=== PATIENT | male | born 1965 | race Caucasian/White ===

== ENCOUNTER 2021-02-19 07:56 | Inpatient (IN) | payer MEDICAID, OTHER ==
[~2021-02-19] VITALS: Ht 147.3 cm; Wt 62.6 kg
[2021-02-19] MEDS ORDERED: PANTOPRAZOLE SODIUM 40 MG/VIAL IV STA (08:14)
[2021-02-19] MEDS ORDERED: ONDANSETRON HCL 4MG/2ML INJ IV ONE (08:15)
[2021-02-19] MEDS ORDERED: SODIUM CHLORIDE 0.9% 1,000 ML IV ONE (08:15)
[2021-02-19 08:47] LABS: BASOPHILS % 0.7 % (0.0-2.0); EOSINOPHILS % 0.3 % (0.0-5.0); HEMATOCRIT. 26.5 % (42.0-52.0); HEMOGLOBIN. 8.6 g/dL (14.0-18.0); LYMPHOCYTES % 12.1 % (20.0-50.0); MEAN CORPUSCULAR HEMOGLOBIN 27.7 pg (28.0-32.0); MEAN CORPUSCULAR VOLUME 85.4 fL (80.0-94.0); MEAN PLATELET VOLUME 7.5 fl (7.4-10.4); NEUTROPHILS % 82.9 % (40.0-76.0); PLATELET 200 x1000/uL (130-400); RED CELL DISTRIBUTION WIDTH 17.6 % (11.6-14.6)
[2021-02-19 08:55] LABS: CHLORIDE 107 mEq/L (98-107)
[2021-02-19 09:41] LABS: INR 1.1; PROTHROMBIN TIME 11.5 sec (9.6-11.0)
[2021-02-19] MEDS ORDERED: MAGNESIUM/ALUMINUM HYDROXIDE/SIMETHICONE 30ML UDC PO STA (11:43)
[2021-02-19] MEDS ORDERED: DICYCLOMINE 10 MG/5 ML ORAL SYR PO STA (11:43)
[2021-02-19] MEDS ORDERED: VISCOUS LIDOCAINE 2% 15 ML UDC PO STA (11:43)
[2021-02-19] MEDS ORDERED: ONDANSETRON HCL 4MG/2ML INJ IV PRN (12:45)
[2021-02-19] MEDS ORDERED: ACETAMINOPHEN 650MG SUPP PR PRN (12:45)
[2021-02-19] MEDS: DEXT 5%/0.45% NACL 1000ML 1,000 ML IV SCH (13:07)
[2021-02-19] MEDS ORDERED: PANTOPRAZOLE 80 MG in SODIUM CHLORIDE 0.9% 100 ML IV SCH (13:30)
[2021-02-19] MEDS: LORAZEPAM 2MG/ML CPJ IV PRN (18:20)
[2021-02-19] MEDS: HYDROMORPHONE HCL/PF 2MG/ML CPJ IV PRN (18:20)
[2021-02-19] MEDS: PANTOPRAZOLE SODIUM 40 MG/VIAL IV SCH (21:22)
[2021-02-20] VITALS (15 sets, daily range): BP systolic 120–152; BP diastolic 62–88
[2021-02-20] MEDS: LORAZEPAM 2MG/ML CPJ IV PRN (01:19)
[2021-02-20] MEDS: DEXT 5%/0.45% NACL 1000ML 1,000 ML IV SCH ×2 (02:08→15:34)
[2021-02-20 06:20] LABS: BASOPHILS % 0.6 % (0.0-2.0); EOSINOPHILS % 0.4 % (0.0-5.0); LYMPHOCYTES % 9.3 % (20.0-50.0); MEAN CORPUSCULAR HEMOGLOBIN 28.2 pg (28.0-32.0); MEAN CORPUSCULAR VOLUME 85.7 fL (80.0-94.0); MEAN PLATELET VOLUME 7.8 fl (7.4-10.4); MONOCYTES % 8.1 % (2.0-8.0); NEUTROPHILS % 81.6 % (40.0-76.0); PLATELET 132 x1000/uL (130-400); RED BLOOD CELL COUNT 2.28 mill/uL (4.7-6.1); RED CELL DISTRIBUTION WIDTH 18.1 % (11.6-14.6)
[2021-02-20 06:23] LABS: INR 1.1; PROTHROMBIN TIME 11.6 sec (9.6-11.0)
[2021-02-20 06:31] LABS: CHLORIDE 104 mEq/L (98-107)
[2021-02-20 06:36] LABS: PHOSPHORUS 2.2 mg/dL (2.5-4.9)
[2021-02-20 06:45] LABS: HEMATOCRIT. 19.5 % (42.0-52.0); HEMOGLOBIN. 6.4 g/dL (14.0-18.0)
[2021-02-20 06:55] LABS: HEPATITIS B SURFACE ANTIGEN NEGATIVE
[2021-02-20 07:25] LABS: HEPATITIS A AB IGM NEGATIVE (NEGATIVE)
[2021-02-20] MEDS ORDERED: PNEUMOCOCCAL 23-VAL P-SAC VAC 0.5 ML IM ONE (08:00)
[2021-02-20] MEDS: PANTOPRAZOLE SODIUM 40 MG/VIAL IV SCH ×2 (09:09→20:46)
[2021-02-20] MEDS ORDERED: MAGNESIUM 2 G PREMIX 50 ML IV NR (11:30)
[2021-02-20] MEDS ORDERED: POTASSIUM PHOS,M-BASIC-D-BASIC 30 MMOL in DEXT 5% WATER 500 ML IV NR (12:00)
[2021-02-20 16:43] LABS: BASOPHILS % 0.6 % (0.0-2.0); EOSINOPHILS % 0.7 % (0.0-5.0); HEMATOCRIT. 23.7 % (42.0-52.0); HEMOGLOBIN. 8.3 g/dL (14.0-18.0); LYMPHOCYTES % 8.6 % (20.0-50.0); MEAN CORPUSCULAR HEMOGLOBIN 30.1 pg (28.0-32.0); MEAN CORPUSCULAR VOLUME 86.1 fL (80.0-94.0); MEAN PLATELET VOLUME 8.1 fl (7.4-10.4); MONOCYTES % 5.4 % (2.0-8.0); NEUTROPHILS % 84.7 % (40.0-76.0); PLATELET 117 x1000/uL (130-400); RED BLOOD CELL COUNT 2.75 mill/uL (4.7-6.1); RED CELL DISTRIBUTION WIDTH 16.4 % (11.6-14.6)
[2021-02-21] VITALS: BP 127/73
[2021-02-21 00:50] LABS: BASOPHILS % 0.5 % (0.0-2.0); EOSINOPHILS % 0.9 % (0.0-5.0); HEMATOCRIT. 27.1 % (42.0-52.0); HEMOGLOBIN. 9.2 g/dL (14.0-18.0); LYMPHOCYTES % 11.4 % (20.0-50.0); MEAN CORPUSCULAR HEMOGLOBIN 28.9 pg (28.0-32.0); MEAN CORPUSCULAR VOLUME 85.3 fL (80.0-94.0); MEAN PLATELET VOLUME 7.8 fl (7.4-10.4); MONOCYTES % 4.8 % (2.0-8.0); NEUTROPHILS % 82.4 % (40.0-76.0); PLATELET 102 x1000/uL (130-400); RED BLOOD CELL COUNT 3.17 mill/uL (4.7-6.1); RED CELL DISTRIBUTION WIDTH 16.2 % (11.6-14.6)
[2021-02-21 01:45] LABS: PROTHROMBIN TIME 11.2 sec (9.6-11.0)
[2021-02-21 04:00] VITALS: BP 133/72
[2021-02-21] MEDS: DEXT 5%/0.45% NACL 1000ML 1,000 ML IV SCH ×3 (04:40→22:46)
[2021-02-21 05:45] LABS: CHLORIDE 100 mEq/L (98-107)
[2021-02-21 05:51] LABS: BASOPHILS % 0.3 % (0.0-2.0); EOSINOPHILS % 1.1 % (0.0-5.0); HEMATOCRIT. 29.7 % (42.0-52.0); HEMOGLOBIN. 9.8 g/dL (14.0-18.0); LYMPHOCYTES % 11.3 % (20.0-50.0); MEAN CORPUSCULAR HEMOGLOBIN 28.9 pg (28.0-32.0); MEAN CORPUSCULAR VOLUME 87.7 fL (80.0-94.0); MEAN PLATELET VOLUME 8.3 fl (7.4-10.4); MONOCYTES % 3.9 % (2.0-8.0); NEUTROPHILS % 83.4 % (40.0-76.0); PLATELET 110 x1000/uL (130-400); RED BLOOD CELL COUNT 3.39 mill/uL (4.7-6.1); RED CELL DISTRIBUTION WIDTH 16.2 % (11.6-14.6)
[2021-02-21 08:06] VITALS: BP 141/77
[2021-02-21] MEDS: PANTOPRAZOLE SODIUM 40 MG/VIAL IV SCH ×2 (08:53→20:39)
[2021-02-21] MEDS: HYDROMORPHONE HCL/PF 2MG/ML CPJ IV PRN ×3 (09:52→22:47)
[2021-02-21] MEDS ORDERED: PROPOFOL 200MG/20ML VIAL IV ONE ×2 (11:45→11:49)
[2021-02-21] MEDS ORDERED: MORPHINE SULFATE 2 MG/ML CPJ (NOT FOR IM USE) IV PRN (12:00)
[2021-02-21] MEDS ORDERED: ONDANSETRON HCL 4MG/2ML INJ IV PRN (12:00)
[2021-02-21] MEDS ORDERED: LIDOCAINE HCL/PF 1% 10 MG/ML 5ML VIAL ONE (12:10)
[2021-02-21 12:11] VITALS: BP 136/84
[2021-02-21 16:00] VITALS: BP 127/70
[2021-02-21 20:00] VITALS: BP 142/85
[2021-02-22] VITALS: BP 149/88
[2021-02-22 04:00] VITALS: BP 158/83
[2021-02-22 08:00] VITALS: BP 138/76
[2021-02-22] MEDS: PANTOPRAZOLE SODIUM 40 MG/VIAL IV SCH (09:03)
[2021-02-22] MEDS: HYDROMORPHONE HCL/PF 2MG/ML CPJ IV PRN (09:17)
[2021-02-22 12:55] VITALS: BP 124/65
[2021-02-22 15:41] VITALS: BP 124/65
[2021-02-22] MEDS ORDERED: SUCRALFATE 1 G/10 ML UDC PO SCH (17:20)
== END 2021-02-22 16:32 | disposition home or self-care (01) | DRG 243 ==
LOC: ER 07:56 → MICUSO 09:29 → EDBEDREQTM 09:30 → EDBEDREQ 09:30 → 6WST 22:33
PROVIDERS: ADMIT Hospitalist; ATTEND Hospitalist
PROC: 30233N1 Transfusion of Nonautologous Red Blood Cells into Peripheral Vein, Percutaneous Approach (ICD-10-PCS; 2021-02-20)
PROC: 0DB68ZX Excision of Stomach, Via Natural or Artificial Opening Endoscopic, Diagnostic (ICD-10-PCS; principal; 2021-02-21)
DX: K20.91 Esophagitis, unspecified with bleeding (principal); K22.6 Gastro-esophageal laceration-hemorrhage syndrome; D62 Acute posthemorrhagic anemia; K29.71 Gastritis, unspecified, with bleeding; K44.9 Diaphragmatic hernia without obstruction or gangrene; F10.10 Alcohol abuse, uncomplicated; Z20.822 Contact with and (suspected) exposure to COVID-19; Z60.2 Problems related to living alone; Z79.899 Other long term (current) drug therapy
CPT/HCPCS: 36415; 71045; 76700; 80053; 83735; 84100; 84450; 85025; 85384; 86705; 86709; 86803; 86850; 86900; 86920; 87340; 87426; 88305; 88312; 88313; 90732; 93005; 99285; C9113; J1170; J2060; J2405; J2704; J3475; J3490; J7030; J7040; J7050; J7060; P9016

== ENCOUNTER 2021-03-06 18:03 | Inpatient (IN) | payer MEDICAID ==
[~2021-03-06] VITALS: Ht 162.6 cm; Wt 26.8 kg
[2021-03-06] MEDS ORDERED: PANTOPRAZOLE SODIUM 40 MG/VIAL IV STA (18:18)
[2021-03-06] MEDS ORDERED: ONDANSETRON HCL 4MG/2ML INJ IV STA (18:18)
[2021-03-06] MEDS ORDERED: DIAZEPAM 5 MG/ML 2ML CPJ IV ONE ×2 (18:30→22:30)
[2021-03-06] MEDS ORDERED: SODIUM CHLORIDE 0.9% 1,000 ML IV ONE (18:30)
[2021-03-06 19:35] LABS: INR 1.1; PROTHROMBIN TIME 11.4 sec (9.6-11.0)
[2021-03-06 19:36] LABS: CHLORIDE 90 mEq/L (98-107)
[2021-03-06 19:37] LABS: HEMATOCRIT. 21.7 % (42.0-52.0); HEMOGLOBIN. 7.5 g/dL (14.0-18.0); MEAN CORPUSCULAR HEMOGLOBIN 28.9 pg (28.0-32.0); MEAN CORPUSCULAR VOLUME 83.4 fL (80.0-94.0); MEAN PLATELET VOLUME 7.3 fl (7.4-10.4); PLATELET 397 x1000/uL (130-400); RED CELL DISTRIBUTION WIDTH 18.8 % (11.6-14.6)
[2021-03-06 20:42] LABS: PLATELET ESTIMATE NORMAL
[2021-03-06] MEDS ORDERED: ONDANSETRON HCL 4MG/2ML INJ IV ONE (23:15)
[2021-03-06] MEDS ORDERED: ONDANSETRON HCL 4MG/2ML INJ IV PRN (23:45)
[2021-03-07] MEDS ORDERED: MORPHINE SULFATE 4 MG/ML CPJ (NOT FOR IM USE) IV ONE (01:15)
[2021-03-07] MEDS ORDERED: DEXT 5%/0.9% NACL KCL 30MEQ/L 1,000 ML IV SCH (02:30)
[2021-03-07 02:47] LABS: CLARITY URINE CLEAR (CLEAR); COLOR URINE YELLOW (YELLOW); KETONES URINE 2+ (NEGATIVE); LEUKOCYTE ESTERASE URINE NEGATIVE (NEGATIVE); NITRITE URINE NEGATIVE (NEGATIVE); OCCULT BLOOD URINE NEGATIVE (NEGATIVE); PH URINE 6.5 (4.5-8.0); PROTEIN URINE 2+ (NEGATIVE); SPECIFIC GRAVITY URINE 1.021 (1.005-1.030)
[2021-03-07] MEDS: PANTOPRAZOLE SODIUM 40 MG/VIAL IV SCH ×2 (03:15→21:35)
[2021-03-07] MEDS: POTASSIUM CHLORIDE INJ 30 MEQ in DEXT 5%/0.9% NACL 1,000 ML IV SCH ×3 (03:15→21:47)
[2021-03-07] MEDS: THIAMINE HCL 100 MG/1 ML 2ML VIAL IM SCH (03:16)
[2021-03-07 05:34] LABS: EOSINOPHILS % 0.1 % (0.0-5.0); HEMATOCRIT. 24.4 % (42.0-52.0); HEMOGLOBIN. 8.3 g/dL (14.0-18.0); MEAN CORPUSCULAR HEMOGLOBIN 28.3 pg (28.0-32.0); MEAN CORPUSCULAR VOLUME 82.7 fL (80.0-94.0); MONOCYTES % 9.6 % (2.0-8.0); NEUTROPHILS % 77.3 % (40.0-76.0); PLATELET 240 x1000/uL (130-400); RED BLOOD CELL COUNT 2.95 mill/uL (4.7-6.1); RED CELL DISTRIBUTION WIDTH 17.3 % (11.6-14.6)
[2021-03-07 05:41] LABS: CHLORIDE 103 mEq/L (98-107)
[2021-03-07 05:49] LABS: ETHANOL BLOOD < 10 mg/dL
[2021-03-07] MEDS: METOCLOPRAMIDE HCL 10MG/2ML VIAL IV SCH ×3 (06:26→18:15)
[2021-03-07] MEDS ORDERED: LORAZEPAM 2MG/ML CPJ IV PRN ×2 (10:15→12:15)
[2021-03-07 12:00] VITALS: BP 139/79
[2021-03-07] MEDS: MULTIVITAMINS,THER W-MINERALS TABLET PO SCH (13:10)
[2021-03-07 18:01] LABS: PHOSPHORUS 1.4 mg/dL (2.5-4.9)
[2021-03-07] MEDS: SUCRALFATE 1 G/10 ML UDC PO SCH ×2 (18:19→21:35)
[2021-03-07 18:23] LABS: FOLIC ACID (FOLATE) SERUM > 20.00 ng/mL (>5.38)
[2021-03-07 20:00] VITALS: BP 123/74
[2021-03-08] VITALS: BP 123/76
[2021-03-08] MEDS: METOCLOPRAMIDE HCL 10MG/2ML VIAL IV SCH ×4 (01:50→17:34)
[2021-03-08 04:00] VITALS: BP 125/71
[2021-03-08] MEDS: SUCRALFATE 1 G/10 ML UDC PO SCH ×4 (06:22→21:50)
[2021-03-08 07:28] LABS: BASOPHILS % 1.2 % (0.0-2.0); EOSINOPHILS % 1.2 % (0.0-5.0); HEMATOCRIT. 24.9 % (42.0-52.0); HEMOGLOBIN. 8.3 g/dL (14.0-18.0); LYMPHOCYTES % 20.2 % (20.0-50.0); MEAN CORPUSCULAR HEMOGLOBIN 28.6 pg (28.0-32.0); MEAN CORPUSCULAR VOLUME 86.1 fL (80.0-94.0); MEAN PLATELET VOLUME 7.6 fl (7.4-10.4); MONOCYTES % 7.3 % (2.0-8.0); NEUTROPHILS % 70.1 % (40.0-76.0); PLATELET 209 x1000/uL (130-400); RED CELL DISTRIBUTION WIDTH 17.2 % (11.6-14.6)
[2021-03-08 07:37] LABS: CHLORIDE 108 mEq/L (98-107)
[2021-03-08 08:00] VITALS: BP 130/78
[2021-03-08] MEDS: THIAMINE HCL 100 MG/1 ML 2ML VIAL IM SCH (09:00)
[2021-03-08] MEDS: PANTOPRAZOLE SODIUM 40 MG/VIAL IV SCH ×2 (10:00→21:50)
[2021-03-08] MEDS: MULTIVITAMINS,THER W-MINERALS TABLET PO SCH (10:00)
[2021-03-08] MEDS: POTASSIUM CHLORIDE INJ 30 MEQ in DEXT 5%/0.9% NACL 1,000 ML IV SCH ×2 (10:01→21:50)
[2021-03-08 12:00] VITALS: BP 124/78
[2021-03-08 16:00] VITALS: BP 126/92
[2021-03-08] MEDS: MAGNESIUM OXIDE 400MG TABLET PO SCH (17:34)
[2021-03-08] MEDS ORDERED: NALOXONE HCL 0.4MG/ML VIAL IV PRN (22:00)
[2021-03-08] MEDS ORDERED: HYDROCODONE/ACETAMINOPHEN 5/325MG TABLET PO PRN (22:00)
[2021-03-09] VITALS: BP 105/67
[2021-03-09] MEDS: METOCLOPRAMIDE HCL 10MG/2ML VIAL IV SCH ×3 (00:36→12:53)
[2021-03-09 04:00] VITALS: BP 120/73
[2021-03-09] MEDS: POTASSIUM CHLORIDE INJ 30 MEQ in DEXT 5%/0.9% NACL 1,000 ML IV SCH (06:32)
[2021-03-09] MEDS: SUCRALFATE 1 G/10 ML UDC PO SCH ×2 (06:32→12:53)
[2021-03-09 08:00] VITALS: BP 133/75
[2021-03-09] MEDS: MULTIVITAMINS,THER W-MINERALS TABLET PO SCH (10:05)
[2021-03-09] MEDS: PANTOPRAZOLE SODIUM 40 MG/VIAL IV SCH (10:05)
[2021-03-09] MEDS: MAGNESIUM OXIDE 400MG TABLET PO SCH (10:05)
[2021-03-09] MEDS: THIAMINE HCL 100 MG/1 ML 2ML VIAL IM SCH (10:05)
[2021-03-09 12:00] VITALS: BP 127/75
[2021-03-09 13:39] VITALS: BP 127/75
== END 2021-03-09 14:10 | disposition home or self-care (01) | DRG 243 ==
LOC: ER 18:03 → MICUSO 23:41 → 8WST 03-07 11:29
PROVIDERS: ADMIT Internal Medicine; ATTEND Internal Medicine
PROC: 30233N1 Transfusion of Nonautologous Red Blood Cells into Peripheral Vein, Percutaneous Approach (ICD-10-PCS; principal; 2021-03-06)
DX: K20.91 Esophagitis, unspecified with bleeding (principal); E87.1 Hypo-osmolality and hyponatremia; E87.8 Other disorders of electrolyte and fluid balance, not elsewhere classified; K74.60 Unspecified cirrhosis of liver; E87.6 Hypokalemia; D64.9 Anemia, unspecified; F10.10 Alcohol abuse, uncomplicated; Y90.9 Presence of alcohol in blood, level not specified; Z71.41 Alcohol abuse counseling and surveillance of alcoholic; Z87.19 Personal history of other diseases of the digestive system; Z91.14 Patient's other noncompliance with medication regimen
CPT/HCPCS: 36415; 71045; 80048; 80053; 80076; 80307; 80320; 80329; 81003; 82746; 82962; 83605; 83735; 84100; 84484; 85025; 86850; 86900; 86920; 93005; 99291; C9113; J2060; J2270; J2405; J2765; J3411; J3480; J7030; J7042; P9016; G0480

== ENCOUNTER 2021-03-15 23:34 | Emergency (ER) | payer MEDICAID ==
[~2021-03-15] VITALS: Ht 157.5 cm; Wt 54.0 kg
[2021-03-16] MEDS ORDERED: MAGNESIUM/ALUMINUM HYDROXIDE/SIMETHICONE 30ML UDC PO STA (00:07)
[2021-03-16] MEDS ORDERED: DICYCLOMINE 10 MG/5 ML ORAL SYR PO STA (00:07)
[2021-03-16] MEDS ORDERED: VISCOUS LIDOCAINE 2% 15 ML UDC PO STA (00:07)
[2021-03-16 00:33] LABS: HEMATOCRIT. 26.7 % (42.0-52.0); HEMOGLOBIN. 8.8 g/dL (14.0-18.0); MEAN CORPUSCULAR HEMOGLOBIN 27.9 pg (28.0-32.0); MEAN CORPUSCULAR VOLUME 84.5 fL (80.0-94.0); MEAN PLATELET VOLUME 6.4 fl (7.4-10.4); PLATELET 483 x1000/uL (130-400); RED BLOOD CELL COUNT 3.16 mill/uL (4.7-6.1); RED CELL DISTRIBUTION WIDTH 18.8 % (11.6-14.6)
[2021-03-16 00:37] LABS: CHLORIDE 114 mEq/L (98-107)
[2021-03-16 00:49] LABS: ETHANOL BLOOD 406 mg/dL
[2021-03-16] MEDS ORDERED: CHLORDIAZEPOXIDE 25MG CAPSULE PO ONE (01:00)
[2021-03-16 01:10] LABS: PROTHROMBIN TIME 10.3 sec (9.6-11.0)
[2021-03-16] MEDS ORDERED: CHLORDIAZEPOXIDE 10MG CAPSULE PO SCH (02:15)
[2021-03-16 04:00] LABS: PLATELET ESTIMATE INCREASED
[2021-03-16 06:20] VITALS: BP 174/87
== END 2021-03-16 06:26 | disposition home or self-care (01) ==
LOC: ER 23:34
DX: F10.229 Alcohol dependence with intoxication, unspecified (principal); Y90.8 Blood alcohol level of 240 mg/100 ml or more
CPT/HCPCS: 36415; 80053; 80320; 85025; 86850; 86900; 93005; 99284; G0480

== ENCOUNTER 2021-09-10 12:17 | Emergency (ER) | payer MEDICAID ==
[~2021-09-10] VITALS: Ht 182.9 cm; Wt 165.0 kg
[2021-09-10] MEDS ORDERED: SODIUM CHLORIDE 0.9% 1,000 ML IV ONE (13:45)
[2021-09-10 14:24] LABS: BASOPHILS % 0.8 % (0.0-2.0); EOSINOPHILS % 0.2 % (0.0-5.0); HEMATOCRIT. 36.5 % (42.0-52.0); HEMOGLOBIN. 11.6 g/dL (14.0-18.0); LYMPHOCYTES % 18.4 % (20.0-50.0); MEAN CORPUSCULAR VOLUME 75.3 fL (80.0-94.0); MEAN PLATELET VOLUME 7.1 fl (7.4-10.4); MONOCYTES % 6.7 % (2.0-8.0); NEUTROPHILS % 73.9 % (40.0-76.0); PLATELET 262 x1000/uL (130-400); RED BLOOD CELL COUNT 4.85 mill/uL (4.7-6.1); RED CELL DISTRIBUTION WIDTH 20.6 % (11.6-14.6)
[2021-09-10 14:38] LABS: CHLORIDE 101 mEq/L (98-107)
[2021-09-10 14:49] LABS: ETHANOL BLOOD 296 mg/dL
[2021-09-10 19:34] VITALS: BP 149/88
== END 2021-09-10 19:45 | disposition home or self-care (01) ==
LOC: ER 12:17
DX: F10.229 Alcohol dependence with intoxication, unspecified (principal); D50.9 Iron deficiency anemia, unspecified; Y90.8 Blood alcohol level of 240 mg/100 ml or more
CPT/HCPCS: 36415; 70450; 80053; 80320; 85025; 96360; 96361; 99284; J7030; G0480

== ENCOUNTER 2022-10-11 07:41 | Emergency (ER) | payer MEDICAID ==
[~2022-10-11] VITALS: Ht 170.2 cm; Wt 75.0 kg
[2022-10-11 07:45] VITALS: BP 154/90
[2022-10-11] MEDS ORDERED: ONDANSETRON HCL 4MG/2ML INJ IV STA (08:13)
[2022-10-11] MEDS ORDERED: SODIUM CHLORIDE 0.9% 1,000 ML IV ONE (08:15)
[2022-10-11 09:28] LABS: BASOPHILS % 0.6 % (0.0-2.0); EOSINOPHILS % 0.2 % (0.0-5.0); HEMATOCRIT. 33.5 % (42.0-52.0); HEMOGLOBIN. 11.7 g/dL (14.0-18.0); LYMPHOCYTES % 12.1 % (20.0-50.0); MEAN CORPUSCULAR HEMOGLOBIN 31.5 pg (28.0-32.0); MEAN CORPUSCULAR VOLUME 90.7 fL (80.0-94.0); MEAN PLATELET VOLUME 7.9 fl (7.4-10.4); MONOCYTES % 6.6 % (2.0-8.0); NEUTROPHILS % 80.5 % (40.0-76.0); PLATELET 153 x1000/uL (130-400); RED BLOOD CELL COUNT 3.69 mill/uL (4.7-6.1); RED CELL DISTRIBUTION WIDTH 15.8 % (11.6-14.6)
[2022-10-11 09:39] LABS: CHLORIDE 95 mEq/L (98-107); PROTHROMBIN TIME 11.1 sec (9.6-11.0)
[2022-10-11] MEDS ORDERED: ONDANSETRON HCL 4MG/2ML INJ IV NR (10:30)
[2022-10-11] MEDS ORDERED: TOPUD MT (13:53)
[2022-10-11] MEDS ORDERED: ONDA4TAB50 MT (13:53)
== END 2022-10-11 14:45 | disposition home or self-care (01) ==
LOC: ER 07:41
DX: R11.0 Nausea (principal); F10.229 Alcohol dependence with intoxication, unspecified; Y90.0 Blood alcohol level of less than 20 mg/100 ml
CPT/HCPCS: 36415; 70450; 80053; 85025; 85610; 96361; 96374; 99285; J2405; J7030; Z7610